=== PATIENT | female | born 1950 | race Caucasian/White ===

== ENCOUNTER 2020-01-16 10:05 | Outpatient (REF) | payer OTHER, SELFPAY ==
--- NOTE | 2020-01-16 10:07 | MR_ITS ---
EXAMINATION: MR BRAIN WITHOUT CONTRAST CLINICAL INFORMATION: Headache COMPARISON: None TECHNIQUE: Routine multi projectional and multi sequential images of the brain were obtained. FINDINGS: There is no abnormal restricted diffusion seen to suspect any acute ischemic symptoms. There are scattered T2 signal changes in the deep white matter of both frontal and parietal lobes without mass effect or edema. The [id number] matter differentiation is maintained. The lateral ventricles are symmetrical in size and configuration without enlargement. There is normal flow void signal seen in major cerebral vasculature. Imaging through the posterior fossa reveals the hindbrain in the craniovertebral axis is normal. MR/MR head/brain wo con IMPRESSION: No acute intracranial process seen. Scattered T2-weighted hypodensity in deep white matter of both hemispheres, nonspecific likely small vessel ischemic changes.
== END 2020-01-16 10:06 | disposition home or self-care (01) ==
LOC: HO.MRI 10:05
PROVIDERS: Visit Provider Family Medicine
DX: R51.9 Headache, unspecified (principal)
CPT/HCPCS: 70551

== ENCOUNTER 2020-01-27 09:45 | Outpatient (REF) | payer OTHER, SELFPAY ==
--- NOTE | 2020-01-27 14:35 | MHC.AU.P13 ---
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 Patient states that she has been experiencing pain on the left side of her head, including her left ear and nose, for the past six months. She notes that she had an MRI earlier this week and is waiting on the results. She denies concerns for her hearing and states that she hears well. Does patient feel they have a hearing loss?: No Has hearing been tested previously?: No Hearing Handicap Inventory: HHIE SCORE: 8 Based on HHIE score, patient has: No perceived hearing handicap Ear History: Recent Ear Pain: Left Ear Medical History: Medical History: Unremarkable Medical History Allergies: Penicillin Medication List: Vitamin C, Vitamin D, Glucosamine, Potassium chloride Otoscopy: Right Ear: Unremarkable Left Ear: Unremarkable Tympanometry: Right Ear: Normal Middle Ear System (Type A) Left Ear: Normal Middle Ear System (Type A) Hearing Evaluation: Transducer(s) Used: Insert Earphones, Bone Conduction Method: Conventional Audiometry Stimuli Used: Pure Tones Right Ear: Description of Hearing: Normal hearing from 250-6000 Hz, sloping to a mild hearing loss at 8000 Hz. Left Ear: Description of Hearing: Normal hearing from 250-1500 Hz, sloping to a mild sensorineural hearing loss at 2000 Hz, rising to normal hearing from 1896-7468 Hz, and sloping to a mild hearing loss at 8000 Hz. Speech Recognition Threshold (SRT): Method Used: Monitored Live Voice Stimuli Used: Spondee Words Right Ear: 25 dBHL Left Ear: 30 dBHL Word Discrimination: Method: Recorded Lists Word Lists Used: Lista Bisil?bica (Armenian) Right Ear: 100% at 70 dBHL Left Ear: 100% at 70 dBHL Recommendations: Recommendations: No further audiological action is indicated at this time. Amplification is not warranted at this time. Recommendations (Other): Patient should return for an audiological re-evaluation if changes are noted. Diagnosis: Primary Diagnosis: H90.3 Bilateral Sensorineural Hearing Loss Services Performed: Services Performed: Comprehensive Audiological Evaluation (CPT 54565) Tympanometry (CPT 32446) Signature: Provider: Edwina Pastor, [facility]
== END 2020-01-27 09:46 | disposition home or self-care (01) ==
LOC: HO.SH 09:45
PROVIDERS: PCP Family Medicine; Referring Provider Family Medicine; Visit Provider Family Medicine
DX: H90.3 Sensorineural hearing loss, bilateral (principal)
CPT/HCPCS: 92557; 92567

== ENCOUNTER 2020-03-26 09:57 | Outpatient (REF) | payer OTHER, SELFPAY | END 2020-03-26 09:58 | disposition home or self-care (01) | LOC: HO.LAB 09:57 | PROVIDERS: PCP Family Medicine; Visit Provider Internal Medicine | DX: Z20.822 Contact with and (suspected) exposure to COVID-19 (principal) | CPT/HCPCS: 36415; C9803; U0003 ==

== ENCOUNTER 2020-04-25 09:46 | Outpatient (REF) | payer MEDICARE, SELFPAY ==
--- NOTE | ~2020-04-25 | MM_ITS ---
EXAMINATION: MM SCREENING DIGITAL BREAST TOMOSYNTHESIS, BILATERAL CLINICAL INFORMATION: Screening. Asymptomatic. The lifetime risk of breast cancer based on the Tyrer-Cuzick Model is 2.3%. COMPARISON: Mammography: October 19, 2018 and studies dating back to March 29, 2009 TECHNIQUE: Digital breast tomosynthesis is performed in both the craniocaudal and mediolateral oblique views along with computer-aided detection (CAD). Synthesized 2D images are generated from the tomosynthesis. FINDINGS: The breasts are extremely dense, which lowers the sensitivity of mammography (ACR BI-RADS breast composition Category d). There are no significant masses, abnormal calcifications, or other abnormalities. MM/MM tomosynthesis screening BI IMPRESSION: There are no significant changes from prior study. ASSESSMENT: BI-RADS 1: Negative RECOMMENDATION: Routine annual mammography screening. This patient's information was entered into a reminder system with a target due date for their next mammogram.
== END 2020-04-25 09:47 | disposition home or self-care (01) ==
LOC: HO.MAMMO 09:46
PROVIDERS: PCP Family Medicine; Visit Provider Family Medicine
DX: Z12.31 Encounter for screening mammogram for malignant neoplasm of breast (principal)
CPT/HCPCS: 77063; 77067

== ENCOUNTER → 2020-05-07 14:44 | Outpatient (BNVA) | payer MEDICARE, SELFPAY | PROVIDERS: PCP Family Medicine; Visit Provider Physician Assistant | DX: Z76.89 Persons encountering health services in other specified circumstances (principal) | CPT/HCPCS: Q3014 ==

== ENCOUNTER 2020-08-07 08:56 | Outpatient (REF) | payer MEDICARE, SELFPAY ==
--- NOTE | ~2020-08-07 | US_ITS ---
EXAMINATION: US ABDOMEN COMPLETE CLINICAL INFORMATION: Right upper quadrant pain. COMPARISON: None TECHNIQUE: Real-time imaging of the abdominal viscera. FINDINGS: PANCREAS: The head and body the pancreas are normal. The tail is not well visualized due to bowel gas. ABDOMINAL AORTA: The proximal, mid, and distal segments are normal in caliber. INFERIOR VENA CAVA: Visualized portions are normal. LIVER: Normal. The liver is normal in size. The liver contour is normal. Parenchymal echogenicity is normal. No focal hepatic lesion. There is no intrahepatic biliary duct dilatation seen. GALLBLADDER: There are gallstones in the gallbladder. There is ring down artifact from the anterior gallbladder wall questionable for adenomyomatosis of the gallbladder wall. The gallbladder wall is otherwise normal. The gallbladder is normal in size. COMMON BILE DUCT: Minimally dilated measuring 0.9 cm in diameter. RIGHT KIDNEY: Normal. No hydronephrosis. No renal calculi or focal parenchymal lesions. The kidney measures 10.2 cm in maximum dimension. LEFT KIDNEY: Normal. No hydronephrosis. No renal calculi or focal parenchymal lesions. The kidney measures 10.0 cm in maximum dimension. SPLEEN: Not well visualized. The spleen measures 6.2 cm in maximum dimension. FREE FLUID: None. US/US abdomen complete IMPRESSION: Gallstones. Question adenomyosis of the gallbladder wall. Limited visualization of the tail of the pancreas.
== END 2020-08-07 08:57 | disposition home or self-care (01) ==
LOC: HO.US 08:56
PROVIDERS: PCP Internal Medicine; Visit Provider Internal Medicine
DX: R10.11 Right upper quadrant pain (principal)
CPT/HCPCS: 76700

== ENCOUNTER → 2020-09-06 08:36 | Outpatient (BNVA) | payer MEDICARE, SELFPAY | PROVIDERS: PCP Family Medicine; Referring Provider Internal Medicine; Visit Provider Surgery | DX: K80.20 Calculus of gallbladder without cholecystitis without obstruction (principal) | CPT/HCPCS: 99202 ==

== ENCOUNTER → 2020-09-12 12:22 | Outpatient (BNVA) | payer OTHER, SELFPAY | PROVIDERS: PCP Family Medicine; Referring Provider Family Medicine; Visit Provider Surgery | DX: L03.031 Cellulitis of right toe (principal) | CPT/HCPCS: 10060; 10061; 99212 ==

== ENCOUNTER → 2021-03-20 15:22 | Outpatient (BNVA) | payer MEDICARE, SELFPAY | PROVIDERS: PCP Family Medicine; Referring Provider Family Medicine; Visit Provider Surgery | DX: K80.20 Calculus of gallbladder without cholecystitis without obstruction (principal) | CPT/HCPCS: 99202 ==

== ENCOUNTER 2021-04-23 09:52 | Day surgery (SDC) | payer MEDICARE, SELFPAY ==
[2021-04-17 10:10] VITALS: BMI 25.8
--- NOTE | 2021-04-22 10:37 | HO.ANESPROP2 ---
Documented by User: Nhi Zambrano NP 04/22/21 10:38 HPI - Anesthesia Eval Consult details Narrative: 71yo F for Cholecystectomy Laparoscopic,poss open PMFSH Active Problems Active Problems: All Active Problems (Updated 09/12/20 @ 13:07 by Demetris Bright MD) Felon of digit (Acute) Gallstones (Acute) Encounter for screening colonoscopy (Acute) Past Medical History Medical History Arthritis Elevated cholesterol Felon of digit Gallstones Family History Family History Mother Stomach cancer Father Liver cancer Surgical History Surgical History H/O colonoscopy Status post excision of lipoma Social History Social History Household Members: Children Alcohol intake: never Patient Tobacco Use Status: Never used Tobacco Use of substances other than those prescribed or required for medical reasons: No Are you DNR?: No Advance Directives: No Advance Directives Information Provided: Yes Current occupational status: retired Meds Allergies Allergy/AdvReac Type Severity Reaction Status Date / Time Penicillins Allergy Mild MOUTH SORES Verified 03/20/21 15:30 Exam Exam Date and Time: April 22, 2021 1037 Height,Weight and Vital Signs: Height 4 ft 11 in Weight 58.06 kg Assessment and Plan Assessment Anesthesia Assessment: Chart Reviewed Documented by User: Dixon Main MD 04/23/21 11:31 PMFSH Past Medical History Medical History Arthritis Elevated cholesterol Felon of digit Gallstones Family History Family History Mother Stomach cancer Father Liver cancer Family history of problems with anesthesia: No Surgical History Surgical History H/O colonoscopy Status post excision of lipoma History of Problems with Anesthesia: No Social History Social History Household Members: Children Alcohol intake: never Patient Tobacco Use Status: Never used Tobacco Use of substances other than those prescribed or required for medical reasons: No Are you DNR?: No Advance Directives: No Advance Directives Information Provided: Yes Current occupational status: retired Meds Allergies Allergy/AdvReac Type Severity Reaction Status Date / Time Penicillins Allergy Mild MOUTH SORES Verified 03/20/21 15:30 Exam Airway Mallampati Class: III TM Dist: >3cm Neck ROM: Full Denture: Upper Heart: ok Lungs: ok Assessment and Plan Final Anesthetic Review Family History of Problems with Anesthesia: No History of Problems with Anesthesia: No NPO: Yes ASA Class: II Final Preanesthetic Review: No Changes in Pt Med Stat, Meds/Allgs Chart Reviewed, Consent Obtained/Reviewed and Anes Risks/Benef Reviewed Patient Risk: Intermediate Procedure Risk: Intermediate Anesthetic Plan Anesthetic Plan: GA and Agree w/ Assess. and Plan Disposition: Standard PACU
[2021-04-23] VITALS (12 sets, daily range): BP systolic 115–160; BP diastolic 51–121; PULSE 56–81; RESP 14–18; TEMP 36.3–36.4; O2SAT 93–99
[2021-04-23] MEDS: Acetaminophen 325 MG TABLET 650 MG PO (11:02)
--- NOTE | 2021-04-23 11:03 | MHC.SHP ---
Pre-Procedural Eval Section A Date of Service: 04/23/21 Section B Chief Complaint: calculus of gallbladder w/o cholecystitis Details of Present Illness: gallstones with periodic RUQ pain Relevant Family History (Specify if Yes): No Relevant Social History: None Present Medications: see Short Stay Collaborative assessment Medical History: No relevant PMH History of Previous Operations: No relevant previous surgery Allergies: Allergies Allergy/AdvReac Type Severity Reaction Status Date / Time Penicillins Allergy Mild MOUTH SORES Verified 03/20/21 15:30 Review of Systems Sugical H&P ROS: Negative: Constitution, Cardiovascular, Respiratory, Neurological, Psychiatric, Hem-Onc, Allergic/Immunologic, Gastrointestinal, Genitourinary, Musculoskeletal, Integumentary, Endocrine and Eyes/Ears/Nose/Throat Exam Surgical H&P Exam: Normal: HEENT, Normal: Heart, Normal: Lungs, Normal: Extremities, Normal: Abdomen, Normal: Skin and Normal: Neurological Plan Diagnosis/Plan: Unchanged I have reviewed the history and physical and performed a pertinent physical examination on my patient. No changes have occurred unless specified.
[2021-04-23] MEDS: Lactated Ringers 1,000 ML 100 ML IVCONT (11:05)
--- NOTE | 2021-04-23 12:30 | P.OP_ITS ---
Operative Note Operative Note Date of Service: 04/23/21 Narrative: Preop diagnosis: Symptomatic gallstones Postop diagnosis: Symptomatic gallstones Procedure: Laparoscopic cholecystectomy Surgeon: Demetris Bright MD [employer] project assistant: BELEN Paz The patient is a 71 year female with gallstones, who was been having upper quadrant pain and tenderness periodically. She therefore wanted to proceed with cholecystectomy in view of this symptomatic gallstones. She understood the technique of laparoscopic cholecystectomy and possible open cholecystectomy. She was aware of the risks, benefits, and alternatives. She was brought to the operating room and placed supine on the table under general anesthesia via endotracheal tube. The abdomen is prepped and draped in the usual sterile fashion. A surgical time-out was done. The patient received Cefotan 2 g IV preoperatively. I made a short incision on the supraumbilical margin using a blade 15 and this was carried down through the full-thickness of the skin and subcutaneous fat down to the fascia. the fascia was incised. The peritoneum was entered. Through this incision a Alejandra port was introduced. Pneumoperitoneum was introduced to a pressure of 15 mm hg. Here on the rest of the procedure was done under vision with the laparoscopic With laparoscopic visualization, I proceeded to the insert a 5/12 mm port in the epigastric area below the subcostal margin. 5 mm port introduced a small incision below the subcostal margin along the anterior axillary line and the midclavicular line. Graspers were placed through these working ports. The patient was placed in head-up and lgee-[id number]-[id number] position. The gallbladder was seen and this was supple and not inflamed. I was able to apply a grasper ports pouch. This was used to retract the gallbladder cephalad . Another grasper was applied to the pouch of the gallbladder and this was used to retract the gallbladder laterally. At this point therefore the gallbladder was being retracted in a cephalad and lateral fashion to put the area of the cystic duct on stretch. I proceeded to bluntly dissect the of the gallbladder using the [place] dissector to strip off peritoneum in fibrous tissue until was able to visualize the cystic duct. I continued to define the cystic duct [place] dissector. By doing so was able to achieve a critical view of the hepatocystic triangle. The cystic artery was seen and there were no other tubular structures in this area. The confluence of the neck of the gallbladder with the cystic duct was therefore confirmed. I then applied clips on the cystic duct with 2 clips being applied distally. The cystic duct was transected between clips with Endo scissors. I define the cystic artery posterior to this using the [place] dissector. I then applied clips with 2 clips being applied distally and the cystic artery was transected with clips with Endo scissors as well . Proceeded to apply traction on the gallbladder away from the liver bed. I divided across the hilum with the electrocautery spatula until I see the interface of the gallbladder wall and the liver bed. I proceeded to then incise the peritoneum of the gallbladder wall with electrocautery. I proceeded to define a plane of dissection between the gallbladder wall and the liver bed along this incision with a combination of blunt dissection with the tip as well as electrocautery. Is note of a good plane so we carefully this gallbladder along this well-defined plane all the way to the fundus until the entire gallbladder completely from the liver bed. The gallbladder was retrieved through an endobag through the umbilical incision I reinserted all ports and re-insufflated. I examined the hepatic space. There was note of good hemostasis. There was no sign of any bleeding or any bile leak I observed all 4 quadrants and there was no other pathology nor any other injury seen . I irrigated the subhepatic space a little bit. I suctioned out the irrigant fluid. Once hemostasis was confirmed, I desufflated the port sites. I removed all ports under vision with laparoscoped. The umbilical port was removed last. The fascia of the umbilical incision was closed with [id number] Dexon 0 stitch. Skin closure was achieved on all incisions using Dexon 4-0 subcuticular running sutures. Steri-Strips and dressings were applied. All incisions were infiltrated with Marcaine 0.5% for postop analgesia. The procedure was then completed. The patient tolerated procedure well. There were no complications noted. Initial and final counts of sponges and instruments were correct. Estimated blood loss about 20 cc . The patient was extubated without difficulty and transferred to the recovery room with stable vital signs.
[2021-04-23] MEDS: oxyCODONE HCl Immed Release 5 MG TABLET PO (12:49)
[2021-04-23] MEDS: fentaNYL citrate/PF 100 MCG/2 ML VIAL 25 MCG IVPUSH ×2 (12:56→13:00)
[2021-04-23] MEDS: ondansetron HCL 4 MG/2 ML VIAL IVPUSH (13:29)
== END 2021-04-23 15:25 | disposition home or self-care (01) ==
PROVIDERS: PCP Family Medicine; Visit Provider Surgery
PROC: 0FT44ZZ Resection of Gallbladder, Percutaneous Endoscopic Approach (ICD-10-PCS; CPT 47562; principal; 2021-04-23 12:10)
DX: K80.10 Calculus of gallbladder with chronic cholecystitis without obstruction (principal); K31.A21 Gastric intestinal metaplasia with low grade dysplasia; Z80.0 Family history of malignant neoplasm of digestive organs; E78.00 Pure hypercholesterolemia, unspecified; M19.90 Unspecified osteoarthritis, unspecified site; L03.019 Cellulitis of unspecified finger; Z88.0 Allergy status to penicillin
CPT/HCPCS: 47562; 88304; J2405; J3010

== ENCOUNTER → 2021-05-08 16:08 | Outpatient (BNVA) | payer MEDICARE, SELFPAY | PROVIDERS: PCP Family Medicine; Visit Provider Surgery | DX: K80.20 Calculus of gallbladder without cholecystitis without obstruction (principal); E78.00 Pure hypercholesterolemia, unspecified; L03.019 Cellulitis of unspecified finger; Z88.0 Allergy status to penicillin; Z90.49 Acquired absence of other specified parts of digestive tract | CPT/HCPCS: 99212 ==

== ENCOUNTER → 2021-07-31 13:40 | Outpatient (BNVA) | payer MEDICARE, SELFPAY | PROVIDERS: PCP Family Medicine; Referring Provider Family Medicine; Visit Provider Physician Assistant | DX: Z12.11 Encounter for screening for malignant neoplasm of colon (principal) | CPT/HCPCS: 99202 ==

== ENCOUNTER → 2021-10-21 15:44 | Outpatient (BNVA) | payer OTHER, SELFPAY | PROVIDERS: PCP Family Medicine; Visit Provider Surgery | DX: R10.11 Right upper quadrant pain (principal) | CPT/HCPCS: 99212 ==

== ENCOUNTER 2021-10-22 10:41 | Outpatient (REF) | payer OTHER, SELFPAY ==
--- NOTE | ~2021-10-22 | XR_ITS ---
EXAMINATION: XR WRIST, LEFT XR HAND/WRIST, RIGHT CLINICAL INFORMATION: Pain. COMPARISON: None TECHNIQUE: PA, lateral, and oblique views of the left wrist. 3 views right hand. FINDINGS: LEFT WRIST: There is no visible acute fracture, dislocation or subluxation seen. No bony erosive changes. The radioulnar joint spaces are minimally reduced. The intercarpal joint space is normal. On scaphoid view, the scaphoid carpal bone is intact. RIGHT HAND/WRIST: There is loss of PIP and DIP joint spaces all digits, slightly worse 5th digit DIP joint with dorsal periarticular spurring and mild flexion deformity. No acute fracture or dislocation seen. XR/XR wrist LT min 3V IMPRESSION: Mild degenerative changes right hand. No visible acute fracture or dislocation left wrist except for minimal loss of radioulnar carpal joint space.
--- NOTE | ~2021-10-22 | XR_ITS ---
EXAMINATION: XR WRIST, LEFT XR HAND/WRIST, RIGHT CLINICAL INFORMATION: Pain. COMPARISON: None TECHNIQUE: PA, lateral, and oblique views of the left wrist. 3 views right hand. FINDINGS: LEFT WRIST: There is no visible acute fracture, dislocation or subluxation seen. No bony erosive changes. The radioulnar joint spaces are minimally reduced. The intercarpal joint space is normal. On scaphoid view, the scaphoid carpal bone is intact. RIGHT HAND/WRIST: There is loss of PIP and DIP joint spaces all digits, slightly worse 5th digit DIP joint with dorsal periarticular spurring and mild flexion deformity. No acute fracture or dislocation seen. XR/XR hand wrist RT IMPRESSION: Mild degenerative changes right hand. No visible acute fracture or dislocation left wrist except for minimal loss of radioulnar carpal joint space.
== END 2021-10-22 10:42 | disposition home or self-care (01) ==
LOC: HO.XRAY 10:41
PROVIDERS: Absent Provider Family Medicine; PCP Family Medicine; Visit Provider Registered Nurse Community Health
DX: M25.531 Pain in right wrist (principal); M25.532 Pain in left wrist; M79.644 Pain in right finger(s)
CPT/HCPCS: 73110; 73130

== ENCOUNTER 2021-11-28 13:30 | Outpatient (RCR) | payer OTHER, SELFPAY ==
--- NOTE | 2021-11-13 15:58 | MHC.OT.EP ---
[address] [phone] Occupational Therapy Plan of Care Date of Evaluation: 11/13/21 Diagnosis: Pain in right wrist and thumb Assessment: Pt. is a 71 y/o female with new onset of R wrist and thumb pain. X-rays were negative for fracture or abnormalities. Pt. reports that gradually her wrist is improving although the thumb continues to be stiff and painful. Pt. has very limited ROM at the IP joint and is hypersensitive to touch. She is currently wearing a thumb spica splint during the day and while at work. Pt. 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 Fern would benefit from short term skilled OT to address noted barriers and assist with return to PLOF. 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 Thank you once again for your referral.
== END 2022-01-08 14:49 | disposition home or self-care (01) ==
LOC: HO.OT 13:30
PROVIDERS: PCP Family Medicine; Visit Provider Nurse Practitioner
DX: M25.531 Pain in right wrist (principal)
CPT/HCPCS: 97018; 97035; 97110; 97165

== ENCOUNTER 2023-10-12 11:00 | Outpatient (REF) | payer OTHER, SELFPAY ==
[2023-10-15 02:29] LABS: TS Negative Control Passed; TS Panel A 1; TS Panel B 2; TS Positive Control Passed; TSpotTB Negative (Negative)
== END 2023-10-12 11:01 | disposition home or self-care (01) ==
LOC: HO.HHCL 11:00
PROVIDERS: Visit Provider Family Medicine
DX: Z02.89 Encounter for other administrative examinations (principal)
CPT/HCPCS: 36415; 86481

== ENCOUNTER → 2024-01-29 13:30 | Outpatient (BNV) | payer OTHER, SELFPAY | PROVIDERS: Visit Provider Internal Medicine | DX: Z12.31 Encounter for screening mammogram for malignant neoplasm of breast (principal) | CPT/HCPCS: 77063; 77067 ==

== ENCOUNTER 2024-01-29 13:31 | Outpatient (REF) | payer OTHER, SELFPAY ==
--- NOTE | ~2024-01-29 | MM_ITS ---
EXAMINATION: MM SCREENING DIGITAL BREAST TOMOSYNTHESIS, BILATERAL CLINICAL INFORMATION: Screening. Asymptomatic. COMPARISON: Mammography: Comparison is made with available priors TECHNIQUE: Digital breast mammography with tomosynthesis is performed in both the craniocaudal and mediolateral oblique views along with computer-aided detection (CAD). FINDINGS: The breasts are extremely dense, which lowers the sensitivity of mammography (ACR BI-RADS breast composition Category d). There are no significant masses, abnormal calcifications, or other abnormalities. MM/MM tomosynthesis screening BI IMPRESSION: No mammographic evidence of malignancy. ASSESSMENT: BI-RADS BI-RADS 1 - Negative RECOMMENDATION: Routine annual mammography screening. 1 year F/U This examination should not preclude the clinical evaluation of a suspicious palpable abnormality. This patient's information was entered into a reminder system with a target due date for their next mammogram. Electronically signed by: Ese Marshall DO 02/09/2024 10:57 AM MEGAN
== END 2024-01-29 13:32 | disposition home or self-care (01) ==
LOC: HO.MAMMO 13:31
PROVIDERS: Visit Provider Family Medicine
DX: Z12.31 Encounter for screening mammogram for malignant neoplasm of breast (principal)
CPT/HCPCS: 77063; 77067

== ENCOUNTER 2024-03-30 13:46 | Outpatient (REF) | payer OTHER, SELFPAY ==
--- NOTE | ~2024-03-30 | MM_ITS ---
EXAMINATION: Dual-Energy X-ray Absorptiometry - Bone Density Study HISTORY: Estrogen deficiency TECHNIQUE: Polar Dual energy absorptiometry (DEXA) of the lumbar spine, total left hip, and femoral neck was performed. COMPARISON: Comparison is made with the prior examination dated 10/10/2016. FINDINGS: The bone mineral density of the lumbar spine is 0.824 with a T-score of -3.0, and a Z-score of -1.0. This represents a BMD change of -9.2% compared to the prior exam. This is statistically significant. The bone mineral density of the left total hip is 0.702 with a T-score of -2.4, and a Z-score of -0.6. This represents BMD change of -6.1% compared to the prior exam. This is statistically significant. The bone mineral density of the left femoral neck is 0.635 with a T-score of -2.9, and a Z-score of -0.9. This represents BMD change of -2.9% compared to the prior exam. MM/XR DEXA axial skeleton IMPRESSION: Based on bone mineral density, and according to World Health Organization (WHO) criteria, the diagnosis is consistent with osteoporosis. All bone density values are in grams per centimeter squared. At this facility, the least significant change in BMD with 95% confidence is 0.022 at the lumbar spine, 0.027 at the hip, and 0.023 at the distal 1/3 radius. Electronically signed by: Luis Sanchez MD 03/31/2024 07:33 AM EST
== END 2024-03-30 13:47 | disposition home or self-care (01) ==
LOC: HO.MAMMO 13:46
PROVIDERS: PCP Family Medicine; Visit Provider Family Medicine
DX: Z13.820 Encounter for screening for osteoporosis (principal); Z78.0 Asymptomatic menopausal state
CPT/HCPCS: 77080

== ENCOUNTER → 2024-03-30 14:00 | Outpatient (BNV) | payer OTHER, SELFPAY | PROVIDERS: PCP Family Medicine; Visit Provider Radiology Diagnostic Radiology | DX: E28.39 Other primary ovarian failure (principal) | CPT/HCPCS: 77080 ==

== ENCOUNTER 2024-11-01 07:43 | Outpatient (REF) | payer OTHER, SELFPAY ==
--- OUTSIDE RECORDS SUMMARY | 2024-11-01 07:45 | XMS_ITS | Clinical Summary ---
Author Organization [employer] Address [address] [facility] [address] [place] [address] Care Team Providers Care Regional Education Coordinator Name Role Phone Dinora Aguilar MD Primary Care Provider [phone]- [phone] Allergies Active Allergy Reactions Criticality Noted Date Comments Penicillin G Fever 10/10/2011 Medications * This document contains information received from the source organization and may not represent a complete record from that organization. Sodium Fluoride 1.1 % creamIndication s:Pain, dental [place] teeth for 2 minutes, morning and night. Spit, do not rinse. Do not eat or drink anything for 30 minutes following use. 112 g 3 5 Active Active Problems Patient Care Coordination No te Formatting of this note migh t be different from the original. [facility] [place] [employer] Program Coordinator: Fern Shadow Graph Weight Operator Agency: [facility], [facility] Problem Noted Date Diagnosed Date Pain, dental 08/17/2024 Generalized gingival recession 05/06/2024 Tooth hypersensitivity 05/06/2024 Cardiac risk counseling 01/14/2024 Overview (01/14/2024): Calculated 01/14/24 intermediate risk The 10-year ASCVD risk score (Eddy TOM, et al., 2019) is: 12% Values used to calculate the score: Age: 73 years Sex: Female Is Non- : No Diabetic: No Tobacco smoker: No Systolic Blood Pressure: 119 mmHg Is BP treated: No HDL Cholesterol: 68 mg/dL Total Cholesterol: 288 mg/dL No results found for: LDLCHOLCAL -Atherosclerotic Cardiovascular Disease (ASCVD) Risk Calculator is intended for a person age 40-79 without ASCVD and with LDL-cholesterol < 190/mg/dl to assesses the chances of developing heart disease over the next 10 years. -Tobacco cessation: not applicable -Statin therapy:N/A -Importance of moderate physical activity and nutrition interventions discussed. 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 [employer] - Pts eb Velasco is her health care proxy and power of deputy county attorney Assessment & Plan (05/14/2023 11:51 AM EST): - Has 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 [employer] - Pts eb Velasco is her health care proxy and power of deputy county attorney Periodontal disease 03/23/2023 Other specified health status 10/20/2022 Overview (01/11/2024): -next physical exam due after 01/10/25 -eye care facilitated by -dental home is [facility] -Pts eb Velasco is her health care proxy Assessment & Plan (01/11/2024 10:04 AM EDT): -next physical exam due after 01/10/25 -eye care facilitated by -dental home is [facility] -Pts eb Velasco is her health care proxy Assessment & Plan (05/14/2023 11:25 AM EST): -next physical exam due after 10/21/2023 -eye care facilitated by -dental home is [facility] - Pts son Luis Velasco is her health care proxy -Pt agreed to a colon cancer screening, DEXA scan and a mammogram to be completed before her next office visit 05/14/23 Assessment & Plan (10/20/2022 9:13 AM EDT): -next physical exam due after 10/21/2023 -eye care facilitated by -dental home is Colon cancer screening 10/20/2022 Overview (01/11/2024): Intake with [facility] on 2021 given the number to call for colonoscopy 01/10/25. - Referral made to GI for colon cancer. screening 04/24/23. - Given number to call GI 10/20/22. - Pt's brother notes she was evaluated by GI, will request records 01/11/24 -Cologuard order [id number]/28/24 Assessment & Plan (01/11/2024 10:02 AM EDT): Intake with [facility] on 2021 given the number to call for colonoscopy 01/10/25. - Referral made to GI for colon cancer. screening 04/24/23. - Given number to call GI 10/20/22. - Pt's brother notes she was evaluated by GI, will request records 01/11/24 Assessment & Plan (05/14/2023 11:18 AM EST): Intake with [facility] on 2021 given the number to call for colonoscopy 10/20/2022. - Referral made to GI for colon cancer screening 05/14/23 Assessment & Plan (10/20/2022 9:48 AM EDT): Intake with [facility] on 2021 given the number to call for colonoscopy 10/20/2022. Adjustment disorder, unspecified 07/14/2022 Cognitive impairment 07/10/2022 Assessment & Plan (07/11/2022 11:27 AM EDT): -Patient repots difficulty with memory. Family concerned for rapid change in memory over the past several months. Labs unremarkable. She was referred for neruopsych testing but it is unclear if she is on the wait list. She denies depression but was seen by behavior health today to get discuss stressors with therapist. referral to neurology for cognitive impairment, possible Alzheimer dementia Alzheimer's dementia 05/15/2022 Overview (10/20/2022): Seen by Memory clinic 09/25/2022. Hx of gradual cognitive decline. Results of cognitive assessment MOCHA was and concerning for early dementia. MRI ordered and the will follow up to discuss Dx and additional resources. She may be a candidate for medication although it was explained to family modest potential benefit and they can not stop or reverse memory loss. Pts son Luis Velasco is her health care proxy. He is on HIPAA. He will be applying for power of attorny and will follow up in memory clinc. Assessment & Plan (01/11/2024 9:45 AM EDT): Seen by Memory clinic 09/25/2022. Hx of gradual cognitive decline. Results of cognitive assessment MOCHA was and concerning for early dementia. MRI ordered and the will follow up to discuss Dx and additional resources. She may be a candidate for medication although it was explained to family modest potential benefit and they can not stop or reverse memory loss. Pts son Luis Velasco is her health care proxy. He is on HIPAA. He will be applying for power of attorny and will follow up in memory clinc. Assessment & Plan (05/14/2023 11:08 AM EST): Seen by Memory clinic 09/25/2022. Hx of gradual cognitive decline. Results of cognitive assessment MOCHA was and concerning for early dementia. MRI ordered and the will follow up to discuss Dx and additional resources. She may be a candidate for medication although it was explained to family modest potential benefit and they can not stop or reverse memory loss. Pts eb Velasco is her health care proxy. He is on HIPAA. He will be applying for power of attorny and will follow up in memory clinc. Assessment & Plan (10/20/2022 9:50 AM EDT): Seen by Memory clinic 09/25/2022. Hx of gradual cognitive decline. Results of cognitive assessment MOCHA was and concerning for early dementia. MRI ordered and the will follow up to discuss Dx and additional resources. She may be a candidate for medication although it was explained to family modest potential benefit and they can not stop or reverse memory loss. Pts son Luis Velasco is her health care proxy. He is on HIPAA. He will be applying for power of attorny and will follow up in memory clinc. Assessment & Plan (05/15/2022 12:28 PM EST): Differential includes mild cognitive impairment, early dementia, depression vs other. -labs ordered -referral to neurology -referral to therapist -follow up 3 months Gallbladder calculus with ac absentee-shawnee cholecystitis and no obstruction 05/13/2022 Overview (07/10/2022): S/P lap jaime with Dr. Bright at [facility] 04/2021 Assessment & Plan (10/20/2022 9:14 AM EDT): S/P lap jaime with Dr. Bright at [facility] 04/2021 Assessment & Plan (07/10/2022 1:23 PM EDT): S/P lap jaime with Dr. Bright at [facility] 04/2021 History of cholecystectomy 05/13/2022 Right upper quadrant pain 05/13/2022 Vitamin D deficiency 05/13/2022 Overview (01/11/2024): No results found for: [id number] -ordered Vit D 01/11/24 Assessment & Plan (01/11/2024 9:44 AM EDT): -ordered Vit D 01/11/24 Hyperlipidemia 05/12/2013 Overview (01/11/2024): Lab Results Component Value Date TRIG 182 (H) 05/15/2022 -continue lifestyle modification -ordered repeat FLP 01/11/24 Assessment & Plan (01/11/2024 9:43 AM EDT): Lab Results Component Value Date TRIG 182 (H) 05/15/2022 -continue lifestyle modification -ordered repeat FLP 01/11/24 Age related osteoporosis 03/16/1959 Overview (03/31/2024): -Dexa done 10/10/2016 was normal - 03/30/24 IMPRESSION: Based on bone mineral density, and according to World Health Organization (WHO) criteria, the diagnosis is consistent with osteoporosis. -will contact son about possible treatment Assessment & Plan (01/11/2024 9:47 AM EDT): >>ASSESSMENT AND PLAN FOR OSTEOARTHRITIS WRITTEN ON 07/10/2022 1:23 PM BY CARRIE DOWNING Risks, benifits and altreanateive of treatment discussed. Dx on DEXA 09/2016 Continue Ca with vitamin D start Fosamax weekly (instrucitons discussed) inro on sostoeporosis given to pt Assessment & Plan (01/11/2024 9:47 AM EDT): >>ASSESSMENT AND PLAN FOR OSTEOARTHRITIS WRITTEN ON 10/20/2022 9:48 AM BY CARRIE DOWNING Dexa done 10/10/2016 was normal, repeat today 10/20/2022. Assessment & Plan (01/11/2024 9:47 AM EDT): >>ASSESSMENT AND PLAN FOR OSTEOARTHRITIS WRITTEN ON 01/11/2024 9:46 AM BY DENZEL PRIETO Dexa done 10/10/2016 was normal, repeat today 10/20/2022. -ordered repeat 01/11/24 Encounters Date Type Department Care Team Description 10/13/2024 Telephone [facility] OPTOMETRY [address] [place], [place] [phone] Ying Garcia OD 10/03/2024 Telephone [facility] MEDICINE [address] [place] [address] Dinora Aguilar MD Health Care Proxy 09/30/2024 Telephone [facility] MEDICINE [address], [place] [phone] Dinora Aguilar MD Referral 09/12/2024 Telephone [facility] MED[facility]INE [address] [facility], [place] [phone] Dinora Aguilar MD requesting call back 08/17/2024 10:00 AM EDT Office Visit [facility] ADULT DENTAL [address] [facility] [place] [address] Dylon Snider, DDS Pain, dental (Primary Dx) from Last 3 Months Immunizations Immunization Administration Dates Next Due Influenza injectable quadriv alent IIV4 with preservative 01/28/2016 Influenza, IIV3, injectable 03/29/2014, 0 Influenza, Split (incl. purified surface antigen ) 05/12/2013 MMR 01/25/2007 OPV, Trivalent 05/19/2007 Pfizer Covid-19 Vaccine 12+ 04/09/2021, 2 Pneumococcal Conjugate PCV 13 09/04/2016 TD (adult), 2 Lf tetanus tox oid, preservative free, adsorbed 01/25/2007 Tdap 11/01/2012 Varicella 01/25/2007 Zoster, live 09/04/2016 Social History Tobacco Use Types Packs/Day Years Used Date Smoking Tobacco: Never Smokeless Tobacco: Never Tobacco Cessation:Counseling Given: Not Answered Alcohol Use Standard Drinks/Week Comments Defer 0 (1 standard drink = 0.6 oz pur e alcohol) Depression Answer Date Recorded Patient Health Questionnaire-9 Score 5 01/11/2024 Patient Health Questionnaire-9 Score 5 01/11/2024 Last PHQ-9: Questionnaire Data Not on file 1 Housing Stability Answer Date Recorded What is your housing situation today? I have estefanypatricia talavera 01/11/[address] you li ve. Do you have problems with any of the following? None of the above 01/11/2024 Food Insecurity Answer Date Recorded Within the past 12 months, y ou worried that your food would run out before you got money to buy more: Never True 01/11/2024 Within the past 12 months,th e food you bought just didn't last and you didn't have enough money to get more: Never True Transportation Answer Date Recorded In the past 12 months, has l ack of transportation kept you from medical appts, meetings, work or from getting things needed for daily living? No;I am not sure 01/11/2024 Utilities Answer Date Recorded In the past 12 months, has t he electric, gas, oil or water company threatened to shut off services in your home? No 01/11/2024 Depression Answer Date Recorded Patient Health Questionnaire-2 Score 0 01/11/2024 Internet Access Answer Date Recorded Internet Access Q1 Yes 01/11/2024 Internet Access Q2 Not on file 01/11/2024 Comments Unknown Sex and Gender Information Value Date Recorded Sex Assigned at Female 01/13/2022 10:19 AM EDT Legal Sex Female 10:19 AM EDT Gender Identity Female 01/13/2022 10:19 AM EDT Sexual Orientation Straight 01/13/2022 10 :19 AM EDT Last Filed Vital Signs Vital Sign Reading Time Taken Comments Blood Pressure 110/70 08/17/2024 10:09 AM EDT Pulse 84 08/17/2024 10:09 AM EDT Temperature 36.1 C (96.9 F) 01/11/2024 9:23 AM EDT Respiratory Rate 18 01/11/2024 9:23 AM EDT Oxygen Saturation 98% 01/11/2024 9:23 AM EDT Inhaled Oxygen Concentration - - Weight 58.5 kg (129 lb) 01/11/2024 9:23 AM EDT Height 146.1 cm (4' 9.5 ) 01/11/2024 9:23 AM EDT Body Mass Index 27.43 01/11/2024 9:23 AM EDT Plan of Treatment Upcoming Encounters Date Type Department Care Team (Late st Contact Info) Description 11/25/2024 9:00 AM EDT Office Visit [facility] MEDICINE [address] [place] [address] Dinora Aguilar MD [address] [place] [address] Health Maintenance Due Date Last Done Comments CT Colonography 1950 Colonoscopy 1950 FIT 1950 FOBT 1950 Sigmoidoscopy 1950 Dental X-Ray: Full Mouth 03/31/2023 03/30/2020, 04/10/2014 Dental Oral Exam 10/17/2024 04/18/2024, , 03/30/2020, Additional history exists Dental Prophylaxis 10/17/2024 04/18/2024, 1 , 11/22/2020, Additional history exists Influenza Vaccine (#1) 2024 6, 03/29/2014, 05/12/2013, Additional history exists COVID-19 Vaccine (3 - season) 2025 04/09/2021, 03/19/2021 Postponed from 11/15/2023 (Patient Refused) DTaP/Tdap/Td Vaccines (2 - Td or Tdap) 01/04/2025 11/01/2012, 01/25/2007 Postponed from 11/01/2022 (Patient Refused) Zoster Vaccines (2 of 3) 01/04/2025 09/04/2016 Pos tponed from 10/30/2016 (Patient Refused) Alcohol/Substance Use Screening 01/10/2025 01/11/2024 Depression Screening 01/10/2025 01/11/2024, 01/11/20 24 Pneumococcal Vaccine: 50+ Years (2 of 2 - PPSV23) 01/10/2025 09/04/2016 Postponed from 09/04/2017 (Patient Refused) SDOH Screening 01/10/2025 01/11/2024 Colorectal Cancer Screening 01/16/2025 FIT DNA/Cologuard 01/16/2025 01/16/2022 RSV Patients and Patients Aged 60 years or older (1 - 1-dose 75+ series) 2025 Tobacco Screening 08/17/2025 08/17/2024 Mammogram 01/28/2026 01/29/2024, 04/16, 04/25/2020, Additional history exists IPV Vaccines Discontinued 05/19/2007 Hepatitis C Screening Completed 05/15/2022 Dental X-Ray: Bitewings Discontinued HIB Vaccines Aged Out No longer eligi ble based on patient's age to complete this topic HPV Vaccines Aged Out No longer eligi ble based on patient's age to complete this topic Hepatitis A Vaccines Aged Out No long er eligible based on patient's age to complete this topic Hepatitis B Vaccines Aged Out No long er eligible based on patient's age to complete this topic Meningococcal B Vaccine Aged Out No l onger eligible based on patient's age to complete this topic Meningococcal Vaccine Aged Out No lillie kaur eligible based on patient's age to complete this topic RSV under 20 months Aged Out No longe r eligible based on patient's age to complete this topic Rotavirus Vaccines Aged Out No longer eligible based on patient's age to complete this topic Procedures Procedure Name Priority Date/Time Associated Diagnosis Comments CASE PRESENTATION, DETAILED AND EXTENSIVE TREATMENT PLANNING Routine 08/17/2024 10:00 AM EDT LIMITED ORAL EVALUATION - PROBLEM FOCUSED Routine 08/17/2024 10:00 AM EDT Full PROPHYLAXIS - ADULT Routine 04/18/2024 11:00 AM EST Periodontal disease Dental plaque PERIODIC ORAL EVALUATION - ESTABLISHED PATIENT Routine 04/18/2024 11:00 AM EST Periodontal disease Edentulous maxilla Dental plaque Gingival recession, generalized Encounter for dental examination Dental calculus BI MAMMOGRAM SCREENING TOMOSYNTHESIS BILATERAL Routine 01/29/2024 1:35 PM EST Screening mammogram for breast cancer HEPATITIS C AB W/REFL TO HCV RNA, QN, PCR Routine 05/15/2022 11:00 AM EST Memory problem PANORAMIC RADIOGRAPHIC IMAGE Routine 03/30/2020 12:00 AM EST from Last 3 Months or Most Recently Relevant to Health Maintenance Results * BI Mammogram Screening Tomosynthesis Bilateral (01/29/2024 1:35 PM EST) Anatomical Region Laterality Modality Breast Bilateral Mammography 01/29/2024 1:35 PM EST Narrative 02/09/2024 11:01 AM EST [facility] [address] [place] [address] Mammography Report Signed Patient: Fern Patel MR#: [id number] 32 : 1950 Acct:[id number] Age/Sex: 73 / F ADM Date: 01/29/24 Loc: HO.MAMMO Attending Dr: Dinora Aguilar MD Ordering Physician: Dinora Aguilar MD Results: 1N egative Date of Service: 01/29/24 Follow Up: 1 Year From Orig inal Mammogram Procedure(s): MM tomosynthesis screening BI Accession Number(s): [id number] cc: Dinora Aguilar MD EXAMINATION: MM SCREENING DIGITAL BREAST TOMOSYNTHESIS, BILATERAL CLINICAL INFORMATION: Screening. Asymptomatic. COMPARISON: Mammography: Comparison is made with available priors TECHNIQUE: Digital breast mammography with tomosynthesis is performed in both the craniocaudal and mediolateral oblique views along with computer-aided detection (CAD). FINDINGS: The breasts are extremely dense, which lowers the sensitivity of mammography (ACR BI-RADS breast composition Category d). There are no significant masses, abnormal calcifications, or other abnormalities. MM/MM tomosynthesis screening BI IMPRESSION: No mammographic evidence of malignancy. ASSESSMENT: BI-RADS BI-RADS 1 - Negative RECOMMENDATION: Routine annual mammography screening. 1 year F/U This examination should not preclude the clinical evaluation of a suspicious palpable abnormality. This patient's information was entered into a reminder system with a target due date for their next mammogram. Electronically signed by: Ese Marshall DO 02/09/2024 10:57 AM EST Dictated By: Ese Marshall DO Signed By: <Electronically signed by Ese Marshall DO in OV> 02/09/24 1057 DD/ 1335 TD/TT: 01/29/24 1345 Weather Stripper: Procedure Note Donotuseinterpreter, Image - [facility]/09/20[facility] [address] [place] [address] Mammography Report Signed Patient: Fern Patel RMR#: [id number] [birth year] : 1950Acct:[id number] Age/Sex: 73 / FADM Date: 01/29/24 Loc: S[facility] Attending Dr: Dinora Aguilar MD Ordering Physician: Dinora Aguilar MDResults: 1N egative Date of Service: 01/29/24Follow Up: 1 Year From Orig inal Mammogram Procedure(s): MM tomosynthesis screening BI Accession Number(s): [id number] cc: Dinora Aguilar MD EXAMINATION: MM SCREENING DIGITAL BREAST TOMOSYNTHESIS, BILATERAL CLINICAL INFORMATION: Screening. Asymptomatic. COMPARISON: Mammography: Comparison is made with available priors TECHNIQUE: Digital breast mammography with tomosynthesis is performed in both the craniocaudal and mediolateral oblique views along with computer-aided detection (CAD). FINDINGS: The breasts are extremely dense, which lowers the sensitivity of mammography (ACR BI-RADS breast composition Category d). There are no significant masses, abnormal calcifications, or other abnormalities. MM/MM tomosynthesis screening BI IMPRESSION: No mammographic evidence of malignancy. ASSESSMENT: BI-RADS BI-RADS 1 - Negative RECOMMENDATION: Routine annual mammography screening. 1 year F/U This examination should not preclude the clinical evaluation of a suspicious palpable abnormality. This patient's information was entered into a reminder system with a target due date for their next mammogram. Electronically signed by: Ese Marshall DO 02/09/2024 10:57 AM EST Dictated By: Ese Marshall DO Signed By: <Electronically signed by Ese Marshall DO in OV> 02/09/24 1057 DD/ 1335 TD/TT: 01/29/24 1345 Weather Stripper: Dinora Aguilar MD [facility] BI PROCEDURES Final Re sult * Hepatitis C Antibody with Reflex to HCV, RNA, Quantitative, Real-Time PCR (05/15/2022 11:00 AM EST) Hepatitis C Antibody NON-REACT ALYSIA NON-REACT ALYSIA Social & Loyal Index 0.06 <1.00 Social & Loyal Comment: HCV antibody was non-reactive. There is no laboratory evidence of HCV infection. In most cases, no further action is required. However, if recent HCV exposure is suspected, a test for HCV RNA (test code 93049) is suggested. For additional information please refer to http://education.[employer]/faq/OLE94s5 (This link is being provided for informational/ educational purposes only.) Blood Venous blood specimen / Unknown 05/15/2022 11:00 AM EST 05/15/2022 11:02 AM EST Narrative [facility] - 05/19/2022 1:09 PM EST FASTING:NO FASTING: NO Dinora Aguilar MD LAB BLOOD ORDERABLES Final Result [facility] [address] [facility] [address], [address] [place] [address] [facility] [address], ([address]) [place] [address] from Last 3 Months or Most Recently Relevant to Health Maintenance Insurance [facility] [employer] (O D-SNP) [place] [id number] [facility] * Guarantor: Fern Patel Account Type Relation to Patient Date of Phone Billing Address Personal/Family Self [address] [place] [address] * Guarantor: Jorge Fern Account Type Relation to Patient Date of Phone Billing Address Personal/Family Self [address] [place] [address] Advance Directives Documents on File Type Date Recorded 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
[2024-11-01 08:47] LABS: Cholesterol 268 mg/dL (<200); HDL Cholesterol 61 mg/dL (>40); Triglycerides 83 mg/dL (<150)
== END 2024-11-01 07:44 | disposition home or self-care (01) ==
LOC: HO.LAB 07:43
PROVIDERS: Visit Provider Family Medicine
DX: E78.5 Hyperlipidemia, unspecified (principal)
CPT/HCPCS: 36415; 80061

== ENCOUNTER 2025-02-03 13:25 | Outpatient (REF) | payer OTHER, SELFPAY ==
--- NOTE | ~2025-02-03 | MM_ITS ---
EXAMINATION: MM SCREENING DIGITAL BREAST TOMOSYNTHESIS, BILATERAL CLINICAL INFORMATION: Screening. Asymptomatic. COMPARISON: Mammography: Comparison is made with available priors TECHNIQUE: Digital breast mammography with tomosynthesis is performed in both the craniocaudal and mediolateral oblique views along with computer-aided detection (CAD). FINDINGS: The breasts are extremely dense, which lowers the sensitivity of mammography. There are no significant masses, abnormal calcifications, or other abnormalities. MM/MM tomosynthesis screening BI IMPRESSION: No mammographic evidence of malignancy. ASSESSMENT: BI-RADS Category 1: Negative RECOMMENDATION: Routine annual mammography screening. 1 year F/U This examination should not preclude the clinical evaluation of a suspicious palpable abnormality. This patient's information was entered into a reminder system with a target due date for their next mammogram. Electronically signed by: Ese Marshall DO 02/07/2025 09:56 AM MEGAN
--- OUTSIDE RECORDS SUMMARY | 2025-02-03 13:47 | XMS_ITS | Encounter Summary ---
Author Organization [employer] Address [address] [facility] [address] [place] [address] Care Team Providers Care Bin Filler Name Role Phone Dinora Aguilar MD Primary Care Provider +1- [phone] Encounter Details Date Type Department Care Team ([facility] st Contact Info) Description 04/15/2022 Abstract [facility] MEDICINE [address] [place] [address] Dinora Aguilar MD [address] [place] [address] Social History Tobacco Use Types Packs/Day Years Used Date Smoking Tobacco: Never Assessed Comments Unknown Sex and Gender Information Value Date Recorded Sex Assigned at Female 01/13/2022 10:19 AM EDT Legal Sex Female 10:19 AM EDT Gender Identity Female 01/13/2022 10:19 AM EDT Sexual Orientation Straight 01/13/2022 10 :19 AM EDT documented as of this encounter Plan of Treatment Not on file documented as of this encounter Procedures Procedure Name Priority Date/Time Associated Diagnosis Comments MAMMOGRAPHY Routine 04/25/2020 PAP SMEAR Routine 04/04/2014 12:00 AM EST documented in this encounter Results * Mammography (04/25/2020) Mammogram BIRADS 1 Anatomical Region Laterality Modality Other us Historical Provider HEALTH MAINTENANCE Final Result * Pap Smear (04/04/2014 12:00 AM EST) Swab us Historical Provider LAB CYTOLOGY ORDERABLES F inal Result IMAGING documented in this encounter Visit Diagnoses Not on filedocumented in this encounter Care Teams Bin Filler Relationship Specialty Start Date End Date Dinora Aguilar MD [address] [place] [id number] PCP - General Family Medicine 09/30/13 DAYANA Kong [facility] Memory Care 05/19/24 documented as of this encounter
--- OUTSIDE RECORDS SUMMARY | 2025-02-03 13:47 | XMS_ITS | Encounter Summary ---
Author Organization [email or web address] Address [address] [place] [address] Care Team Providers Care Cvt Rn Name Role Phone Dinora Aguilar MD Primary Care Provider +1- [phone] Reason for Visit * Reason Onset Date Comments Health Care Proxy 10/03/2024 Encounter Details Date Type Department Care Team ([facility] Contact Info) Description 10/03/2024 Telephone [facility] [address] [place], [place] [phone] Dinora Aguilar MD [address] [place] [address] Health Care Proxy Social History Tobacco Use Types Packs/Day Years Used Date Smoking Tobacco: Never Smokeless Tobacco: Never Alcohol Use Standard Drinks/Week Comments Defer 0 (1 standard drink = 0.6 oz pur e alcohol) Depression Answer Date Recorded Patient Health Questionnaire-9 Score 5 01/11/2024 Patient Health Questionnaire-9 Score 5 01/11/2024 Last PHQ-9: Questionnaire Data Not on file 1 Housing Stability Answer Date Recorded What is your housing situation today? I have estefany talavera 01/11/[address] you [...] AM EDT documented as of this encounter Miscellaneous Notes * Telephone Encounter - Dinora Aguilar MD - 10/06/2024 10:14 AM EDT Thank you I left message for Polina asking her to call Radha at [facility] [phone] and ask for apt with Marisol Stringer who is aware of pt and can assist in making decisions about health care proxy. I explained they would be able to better assess if health care proxy invoking is appropriate at this time. Thank you. * Telephone Encounter - Wilma Fitzgerald RN - 10/05/2024 1:50 PM EDT Return call placed to Polina at [facility] in regards to to following up on the questions regarding the ptHCP and the pt mental capacity to make decisions. Polina was advised of the information below from PCP regarding invoking the HCP and referring the pt to the memory clinic. Polina was thankful and heard the PCP left regarding the pt but did have a few more questions for Dr. Riley's In regards to reaching out to the pt son Luis Velasco, Polina wanted to make it clear that he is in [place] andcommunication has only been through email. Polina provided Luis's email if the PCP would like to ask any further questions regarding the pt mental state or HCP. Polina also wanted a clinical decision from PCP if the HCP should be invoked due to the pt mental capacity. As of right now the pt brother Pete is making many decisions for the pt but can't act on them due to not being HCP. Polina is also not able to communicate with Pete about the pt medical care due to this as well. Lastly, Polina would like to speak with Dandy Stringer NP in the memory clinic to discuss pt mental capacity and steps moving forward. Polina advised that this information will be sent back to PCP for review. PCP Message Thank you. I called Polina patient care Polina with [facility] at [phone] and left message that I agree with the change in health care proxy and advise she speak with son Dejan Velasco as well.PCP does not need to be involved with choosing health care proxy but we can assist with invoking ifneeded for medical decisions. This can be done with the the [facility] specializes in this. If family has qustions about ability for decisions, I will defer to memory clinic with German Stringer NP who is familiar with her case. Thank you. * Telephone Encounter - Steve Edmonds - 10/05/2024 11:34 AM EDT Tc from Polina with [facility] requesting a call back in regards to follow up questions. Polina is requesting to speak to Wilma. [phone] Ext [phone] * Telephone Encounter - Dinora Aguilar MD - 10/05/2024 9:31 AM EDT Thank you. I called Polina patient care Polina with [facility] at [phone] and left message that I agree with the change in health care proxy and advise she speak with son Dejan Velasco as well.PCP does not need to be involved with choosing health care proxy but we can assist with invoking ifneeded for medical decisions. This can be done with the [facility] specializes in this. If family has qustions about ability for decisions, I will defer to memory clinic with German Stringer NP who is familiar with her case. Thank you. * Telephone Encounter - Wilma Fitzgerald RN - 10/03/2024 3:41 PM EDT Return call placed to the pt [employer] Polina in regards to several concerns with the pt. Polina wanted to call and inform PCP that the pt former health care proxy Luis (pt brother) has left the country and is no longer in contact with the pt. Per the pt chart, there is no other HCP listed for an alternative person to contact. The pt does have a brother Pete who lives very close to the pt (five minutes away) and checks on her daily. Pete would like to become the pt new HCP and also listed on the pt HIPAA as a primary person to contact. Polina is concerned that the pt dementia/alzheimer's is worsening and the pt can't make suitable decisions for herself. The pt is currently living alone and retention of information is very difficult. Polina would like PCP to advise on the pt current state and if a new HCP should be invoked so that [facility] can speak to Pete regarding the pt care going forward. Polina would either like the PCP to determine that this plan for a new HCP is necessary for the pt and assist in helping a new HCP be invoked. Polina advised that PCP is outof the office until Thursday 10/05 but a high priority message will be sent. Polina will be informed once a decision has be made. * Telephone Encounter - Edith Contsantino - 10/03/2024 12:14 PM EDT Tc from patient care Polina with [facility] requesting to speak to nurse or PCP. Polina stated she hadhome visit with pt and is asking what is PCP's recommendations due to pt living alone and current diagnosis. Contact Polina at [phone] documented in this encounter Plan of Treatment Not on file documented as of this encounter Visit Diagnoses Not on filedocumented in this encounter Additional Health Concerns Assessment Noted Time PHQ-9 Depression Total Score: 5 01/11/20 24 10:08 AM EDT documented as of this encounter Care Teams Cvt Rn Relationship Specialty Start Date End Date Dinora Aguilar MD [address] [place] [id number] PCP - General Family Medicine 09/30/13 DAYANA Kong [facility] Memory [facility] 05/19/24 documented as of this encounter
--- OUTSIDE RECORDS SUMMARY | 2025-02-03 13:47 | XMS_ITS | Encounter Summary ---
Author Organization [employer] Address [address] [facility] [address] [place] [address] Care Team Providers Care Audiovisual Technician Name Role Phone Dinora Aguilar MD Primary Care Provider +1- [phone] Encounter Details Date Type Department Care Team (Latest Contact Info) Description 01/07/2022 Abstract [facility] CONVERSIONS Dental, Provider, DDS Social History Tobacco Use Types Packs/Day Years [...] on filedocumented in this encounter Care Teams Audiovisual Technician Relationship Specialty Start Date End Date Dinora Aguilar MD [address] [place] [id number] PCP - General Family Medicine 09/30/13 Dandy Bertrand, DAYANA [facility] Memory Care 05/19/24 documented as of this encounter
--- OUTSIDE RECORDS SUMMARY | 2025-02-03 13:47 | XMS_ITS | Encounter Summary ---
Author Organization [employer] Address [address] [facility] 7[address] [place] [address] Care Team Providers Care Tobacco Acreage Measurer Name Role Phone Dinora Aguilar MD Primary Care Provider +1- [phone] Encounter Details Date Type Department Care Team (Latest Contact Info) Description 11/22/2020 Abstract [facility] CONVERSIONS Dental, Provider, DDS Social History Tobacco [...] on filedocumented in this encounter Care Teams Tobacco Acreage Measurer Relationship Specialty Start Date End Date Dinora Aguilar MD [address] [place] [phone] PCP - General Family Medicine 09/30/13 Dandy Bertrand, DAYANA [facility] Memory Care 05/19/24 documented as of this encounter
--- OUTSIDE RECORDS SUMMARY | 2025-02-03 13:47 | XMS_ITS | Clinical Summary ---
Author Organization [employer] Address [address] [facility] 7[address] [place] [address] Care Team Providers Care Ceramics Artist Name Role Phone Dinora Aguilar MD Primary Care Provider +1- [phone] Allergies Active Allergy Reactions Criticality Noted Date Comments Penicillin G Fever 10/10/2011 Medications * This document contains information received from the source organization and may not represent a complete record from that organization. Sodium Fluoride 1.1 % creamIndication s:Pain, dental [place] teeth for 2 minutes, morning and night. Spit, do not rinse. Do not eat or drink anything for 30 minutes following use. 112 g 3 5 Active Active Problems Patient Care Coordination No te Formatting of this note migh t be different from the original. [facility] [employer] Superintendent: Fern Museum Guide Agency: [employer] [facility] Problem Noted Date Diagnosed Date Pain, dental [...] Screening mammogram for breast cancer 01/11/2024 Overview (11/25/2024): 01/29/24 BI-RADS 1 - Negative Assessment & Plan (01/11/2024 9:43 AM EDT): -mammogram ordered 01/11/24 Postmenopausal 01/11/2024 Complex care coordination 05/14/2023 Overview (05/14/2023): - Has OWNER OPERATOR 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 [facility] - Pts eb Velasco is her health care proxy and power of defense attorney Assessment & Plan (11/25/2024 10:13 AM EDT): - Has OWNER OPERATOR 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 [facility] - Pts eb Velasco is her health care proxy and power of defense attorney Assessment & Plan (01/11/2024 10:03 AM EDT): - Has OWNER OPERATOR 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 [facility] - Pts eb Velasco is her health care proxy and power of defense attorney Assessment & Plan (05/14/2023 11:51 AM EST): - Has OWNER OPERATOR 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 - Pts eb Velasco is her health care proxy and power of defense attorney Periodontal disease 03/23/2023 Other specified health status 10/20/2022 Overview (11/25/2024): -next comprehensive annual evaluation due after 11/25/24 -eye care facilitated by -dental home is [facility] -Pts eb Velasco is her health care proxy Assessment & Plan (11/25/2024 10:13 AM EDT): -next comprehensive annual evaluation due after 11/25/24 -eye care facilitated by -dental home is [facility] -Pts eb Velasco is her health care proxy Assessment & Plan (01/11/2024 10:04 AM EDT): -next physical exam due after 01/10/25 -eye care facilitated by -dental home is [facility] -Pts eb Velasco is her health care proxy Assessment & Plan (05/14/2023 11:25 AM EST): -next physical exam due after 10/21/2023 -eye care facilitated by -dental home is [facility] - Pts eb Velasco is her health care proxy -Pt agreed to a colon cancer screening, DEXA scan and a mammogram to be completed before her next office visit 05/14/23 Assessment & Plan (10/20/2022 9:13 AM EDT): -next physical exam due after 10/21/2023 -eye care facilitated by -dental home is Screening for colon cancer 10/20/2022 Overview (11/25/2024 9:43 AM EDT): Intake with [facility] on 2021 given the number to call for colonoscopy 01/10/25. - Referral made to GI for colon cancer. screening 04/24/23. - Given number to call GI 10/20/22. - Pt's brother notes she was evaluated by GI, will request records 01/11/24 - Cologuard order placed 01/11/24 - resent Cologuard 11/25/24 - Discussed and instructed how to use Cologuard and how to send it in 11/25/24 Assessment & Plan (11/25/2024 10:13 AM EDT): Intake with [facility] on 2021 given the number to call for colonoscopy 01/10/25. - Referral made to GI for colon cancer. screening 04/24/23. - Given number to call GI 10/20/22. - Pt's brother notes she was evaluated by GI, will request records 01/11/24 - Cologuard order placed 01/11/24 - resent Cologuard 11/25/24 - Discussed and instructed how to use Cologuard and how to send it in 11/25/24 Orders: Cologuard colon cancer screening Assessment & Plan (11/25/2024 9:43 AM EDT): >>ASSESSMENT AND PLAN FOR COLON CANCER SCREENING WRITTEN ON 10/20/2022 9:48 AM BY CARRIE DOWNING Intake with [facility] on 2021 given the number to call for colonoscopy 10/20/2022. Assessment & Plan (11/25/2024 9:43 AM EDT): >>ASSESSMENT AND PLAN FOR COLON CANCER SCREENING WRITTEN ON 05/14/2023 11:18 AM BY KAMALA MAYERS Intake with [facility] on 2021 given the number to call for colonoscopy 10/20/2022. - Referral made to GI for colon cancer screening 05/14/23 Assessment & Plan (11/25/2024 9:43 AM EDT): >>ASSESSMENT AND PLAN FOR COLON CANCER SCREENING WRITTEN ON 01/11/2024 10:02 AM BY DENZEL PRIETO Intake with [facility] on 2021 given the number to call for colonoscopy 01/10/25. - Referral made to GI for colon cancer. screening 04/24/23. - Given number to call GI 10/20/22. - Pt's brother notes she was evaluated by GI, will request records 01/11/24 Assessment & Plan (11/25/2024 9:43 AM EDT): >>ASSESSMENT AND PLAN FOR COLON CANCER SCREENING WRITTEN ON 11/25/2024 7:18 AM BY DENZEL PRIETO Adjustment disorder, unspecified 07/14/2022 Cognitive impairment 07/10/2022 [...] cognitive impairment, possible Alzheimer dementia Alzheimer's dementia ([facility]) 05/15/2022 Overview (10/20/2022): Seen by Memory clinic [...] up in memory clinc. Assessment & Plan (11/25/2024 10:13 AM EDT): Seen by Memory clinic 09/25/2022. [...] and will follow up in memory clinc. Orders: Vitamin B12/Folate, Serum Panel; Future Assessment & Plan (01/11/2024 9:45 AM EDT): [...] up 3 months Gallbladder calculus with ac haresh cholecystitis and no obstruction 05/13/2022 Overview (07/10/2022): S/P lap jaime with Dr. Bright at [facility] 04/2021 Assessment & Plan (10/20/2022 9:14 AM EDT): S/P lap jaime with Dr. Bright at [facility] 04/2021 Assessment & Plan (07/10/2022 1:23 PM EDT): S/P lap jaime with Dr. Bright at [facility] 04/2021 History of cholecystectomy 05/13/2022 Right upper quadrant pain 05/13/2022 Vitamin D deficiency 05/13/2022 Overview (11/25/2024): No results found for: [id number] -ordered Vit D 01/11/24, never collected. -reordered Vit D 11/25/24 to be completed before next visit in 6 months. Assessment & Plan (11/25/2024 10:13 AM EDT): -ordered Vit D 01/11/24, never collected. -reordered Vit D 11/25/24 to be completed before next visit in 6 months. Orders: Vitamin D, 25-Hydroxy, Total, Immunoassay; Future Assessment & Plan (01/11/2024 9:44 AM EDT): -ordered Vit D 01/11/24 Hyperlipidemia 05/12/2013 Overview (11/25/2024): Lab Results Component Value Date CHOL 268 (H) 11/01/2024 TRIG 83 11/01/2024 TRIG 182 (H) 05/15/2022 HDL 61 11/01/2024 LDLCHOLCAL 191 (H) 11/01/2024 -continue lifestyle modification -recommended statin, pt declined and reports preferring natural remedies at this time 11/15/24 Assessment & Plan (11/25/2024 10:13 AM EDT): Lab Results Component Value Date CHOL 268 (H) 11/01/2024 TRIG 83 11/01/2024 TRIG 182 (H) 05/15/2022 HDL 61 11/01/2024 LDLCHOLCAL 191 (H) 11/01/2024 -continue lifestyle modification -recommended statin, pt declined and reports preferring natural remedies at this time 11/15/24 Orders: Hepatic Function Panel; Future Lipid Panel, Standard; Future Basic Metabolic Panel; Future Assessment & Plan (01/11/2024 9:43 AM EDT): [...] son about possible treatment Assessment & Plan (11/25/2024 10:13 AM EDT): -Dexa done 10/10/2016 was normal - 03/30/24 IMPRESSION: Based on bone mineral density, and according to World Health Organization (WHO) criteria, the diagnosis is consistent with osteoporosis. -will contact son about possible treatment Assessment & Plan (01/11/2024 9:47 AM EDT): >>ASSESSMENT AND PLAN FOR OSTEOARTHRITIS WRITTEN ON 07/10/2022 1:23 PM BY nathan Yu and bassam of treatment discussed. Dx on DEXA 09/2016 [...] Encounters Date Type Department Care Team Description 01/10/2025 Telephone [facility] [address] [place] [phone] Sharon Palomino RN NTTS 11/25/2024 9:00 AM EDT Office Visit [facility] [address] [place] [address] Dinora Aguilar MD Severe Alzheimer's dementia of other onset, unspecified whether behavioral, psychotic, or mood disturbance or anxiety ([facility]) (Primary Dx); Mixed hyperlipidemia; Age related osteoporosis, unspecified pathological fracture presence; Vitamin D deficiency; Complex care coordination; Overweight with body mass index (BMI) of 27 to 27.9 in adult; Dietary counseling; Exercise counseling; Other specified health status; Screening for colon cancer 11/25/2024 Travel 11/15/2024 Telephone [facility] [address] [place] [phone] Dinora Aguilar MD Telephone Call from Last 3 Months Immunizations Immunization Administration [...] Answer Date Recorded Patient Health Questionnaire-9 Score 3 11/25/2024 Patient Health Questionnaire-9 Score 3 11/25/2024 Last PHQ-9: Questionnaire Data Not on file 0 11/25/2024 Housing Stability Answer Date Recorded What is [...] from getting things needed for daily living? No 11/25/2024 Utilities Answer Date Recorded In the past 12 months, has t he electric, gas, oil or water company threatened to shut off services in your home? No 01/11/2024 Depression Answer Date Recorded Patient Health Questionnaire-2 Score 3 11/25/2024 Internet Access Answer Date Recorded Internet Access [...] Sign Reading Time Taken Comments Blood Pressure 100/79 11/25/2024 9:15 AM EDT Pulse 72 11/25/2024 9:15 AM EDT Temperature 37.2 C (99 F) 11/25/2024 9:15 AM EDT Respiratory Rate 16 11/25/2024 9:15 AM EDT Oxygen Saturation 99% 11/25/2024 9:15 AM EDT Inhaled Oxygen Concentration - - Weight 58 kg (127 lb 12.8 oz) 11/25/2024 9:15 AM EDT Height 145.1 cm (4' 9.13 ) 11/25/2024 9:15 AM ED T Body Mass Index 27.53 11/25/2024 9:15 AM EDT Plan of Treatment Health Maintenance Due Date Last Done Comments CT Colonography 1950 Colonoscopy 1950 FIT 1950 Sigmoidoscopy 1950 Alcohol/Substance Use Screening 1962 Zoster Vaccines (2 of 3) 10/30/2016 09/04/2016 Pneumococcal Vaccine: 50+ Years (2 of 2 - PCV20 or PCV21) 09/04/2017 09/04/2016 DTaP/Tdap/Td Vaccines (2 - Td or Tdap) 11/01/2022 11/01/2012, 01/25/2007 FOBT 01/16/2023 01/16/2022 Dental X-Ray: Full Mouth 03/31/2023 03/30/2020, 04/0 10/2014 Dental Oral Exam 10/17/2024 04/18/2024, , 03/30/2020, Additional history exists Dental Prophylaxis 10/17/2024 04/18/2024, 1 , 11/22/2020, Additional history exists COVID-19 Vaccine (3 - 2024- season) 2024 04/09/2021, 03/19/2021 Influenza Vaccine (#1) 2024 6, 03/29/2014, 05/12/2013, Additional history exists Colorectal Cancer Screening 01/16/2025 FIT DNA/Cologuard 01/16/2025 01/16/2022 RSV Patients and Patients Aged 60 years or older (1 - 1-dose 75+ series) 2025 Depression Screening 11/25/2025 11/25/2024, 11/26/19 SDOH Screening 11/25/2025 11/25/2024 Tobacco Screening 11/25/2025 11/25/2024 IPV Vaccines Discontinued 05/19/2007 Hepatitis C Screening [...] Procedure Name Priority Date/Time Associated Diagnosis Comments Full PROPHYLAXIS - ADULT Routine 04/18/2024 11:00 AM EST Periodontal disease Dental plaque PERIODIC ORAL EVALUATION - ESTABLISHED PATIENT Routine 04/18/2024 11:00 AM EST Periodontal disease Edentulous maxilla Dental plaque Gingival recession, generalized Encounter for dental examination Dental calculus HEPATITIS C AB W/REFL TO HCV RNA, QN, PCR Routine 05/15/2022 11:00 AM EST Memory problem PANORAMIC RADIOGRAPHIC IMAGE Routine 03/30/2020 12:00 AM EST from Last 3 Months or Most Recently Relevant to Health Maintenance Results * Hepatitis C Antibody with Reflex to HCV, RNA, Quantitative, Real-Time PCR (05/15/2022 11:00 AM EST) Hepatitis C Antibody NON-REACT ALYSIA NON-REACT ALYSIA daPulse Index 0.06 <1.00 daPulse Comment: HCV antibody was non-reactive. There is no laboratory evidence of HCV infection. In most cases, no further action is required. However, if recent HCV exposure is suspected, a test for HCV RNA (test code 96227) is suggested. For additional information please refer to http://education.Domo/faq/QOM87f8 (This link is being provided for informational/ educational purposes only.) Blood Venous blood specimen / Unknown 05/15/2022 11:00 AM EST 05/15/2022 11:02 AM EST Narrative [facility] - 05/19/2022 1:09 PM EST FASTING:NO FASTING: NO Dinora Aguilar MD LAB BLOOD ORDERABLES Final Result [facility] [address], [place] [address] [employer] [place] [employer] [address] [facility], ([address]) [place] [address] from Last 3 Months or Most Recently Relevant to Health Maintenance Insurance [employer] FDC OPTIONS (HMO D-SNP) [facility]AL [facility] * Guarantor: JorgeFern Account Type Relation to Patient Date of Phone Billing Address Personal/Family Self [address] [place] [address] * Guarantor: Fern Patel Account Type Relation to Patient Date of Phone Billing Address Personal/Family Self [address] [place] [address] * Guarantor: JorgeFern Account Type Relation to Patient Date of Phone Billing Address Personal/Family Self [address] [place] [address] Advance Directives Documents on File Type Date Recorded Patient Cashier General Expl anation Power of Copy Operator 10/06/2024 Health Car e Proxy 10/03/24 HealthCare Proxy 06/25/2023 Power of Copy Operator 06/25/2023 POA Form R mica Velasco (Does not unless revoked in writing) Care Teams Ceramics Artist Relationship Specialty Start Date End Date [place], MD Dinora [address] [place] [address] PCP - General Family Medicine 09/30/13 DAYANA Kong [facility] Memory Care 05/19/24
== END 2025-02-03 13:26 | disposition home or self-care (01) ==
LOC: HO.MAMMO 13:25
PROVIDERS: PCP Family Medicine; Visit Provider Family Medicine
DX: Z12.31 Encounter for screening mammogram for malignant neoplasm of breast (principal)
CPT/HCPCS: 77063; 77067

== ENCOUNTER → 2025-02-03 13:30 | Outpatient (BNV) | payer OTHER, SELFPAY | PROVIDERS: PCP Family Medicine; Visit Provider Internal Medicine | DX: Z12.31 Encounter for screening mammogram for malignant neoplasm of breast (principal) | CPT/HCPCS: 77063; 77067 ==